=== PATIENT | male | born 1950 | race Caucasian/White ===

== ENCOUNTER → 2019-09-10 | Outpatient (CLI) | payer MEDICARE, OTHER ==
--- NOTE | 2019-09-10 19:47 | CONS ---
CONSULTATION REASON FOR CONSULTATION: Sleep apnea. A 69-year-old male patient diagnosed having obstructive sleep apnea back in 2013. At that time, the patient was found to have severe disease with an AHI of 41. He used to weigh 253 pounds. He was given CPAP therapy at a pressure of 15 cm of water. He was given a Resmed S9 series. He has not used his CPAP machine for almost a year. It went through multiple masks including nose mask, nose pillows and full face mask and he is seeking full-face mask, which does not irritate his nose knowing that he has developed significant amount of irritation at the level of his nose bridge. He has not used his machine for almost a year and he is symptomatically snoring. His sleep is fragmented and he is waking up tired and sleepy during the day. Note that there has been no significant weight gain over the past 5 years. He is know to have several comorbidities. No history of stroke. No history of coronary artery disease and myocardial infarction. No history of malignancy. For now he is symptomatic. His [place] score is at 7 and he is seeking further help regarding the pressure setting and the mask interface to make the treatment more successful. PAST MEDICAL HISTORY: Obstructive sleep apnea. Hyperlipidemia, diabetes mellitus, hypertension, and psoriasis. SURGICAL HISTORY: Includes shoulder surgery and knee surgery. DRUG ALLERGIES: Not known. OUTPATIENT MEDICATION LIST: Includes Crestor, metformin, Altace, Zyrtec, Otezla. SOCIAL HISTORY: The patient is a nonsmoker. No history of alcoholism. He is a social alcohol drinker. No history of substance abuse. FAMILY HISTORY: Negative for sleep apnea. Family history has been essentially positive for hypertension and hyperlipidemia. REVIEW OF SYSTEMS: Fourteen-point review of system was done. Positive findings are mentioned in history of present illness. For now, he is symptomatic and has excessive fatigue and sleepiness and snoring and quits breathing at night. No insomnia. No choking. He does not wake up gasping for air. He seems to be tired and sleepy during the day. Having problems with tiredness and falling sleep during the day. He is taking two caffeinated beverages on a daily basis. Weight is stable at 230. Does take a nap in the afternoon. He does not fall asleep while driving. No history of any motor vehicle accident because of feeling drowsy or sleepy. No nighttime chest pain, heartburn or shortness of breath. His weight has been stable furthermore. PHYSICAL EXAMINATION: His current vitals: BP is 153/68, pulse 64, respirations 16, temperature 98.0, saturation 97% on room air. Height is 5 feet 6 inches, weight is 223. Neck size 18 1/4 of an inch and BMI 35.4, general appearance: Calm and comfortable. Head is atraumatic, normocephalic. NECK: Supple. There is no JVD. No goiter or neck masses. Mallampati class 4. Lungs diminished, otherwise clear. HEART: Heart sounds are regular rate and rhythm. Normal S1, S2. No S3. No murmurs. ABDOMEN: Soft, nontender. No organomegaly. EXTREMITIES: No edema. No cyanosis or clubbing. NEUROLOGIC: He is awake and alert. There are no focal neurological deficits. PSYCHIATRIC: Negative for anxiety or depression. IMPRESSION: 1. Symptomatic obstructive sleep apnea. Severe, based on a previous sleep study that was done in 2013 and the patient has an AHI of 41. His weight has been stable. He was given Resmed S9 series CPAP unit at a pressure of 15 cm of water. 2. 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 3. Hyperlipidemia. 4. Diabetes mellitus. 5. Psoriasis. PLAN: I went ahead and reviewed the CPAP titration that was done back in 2013. I think we should be able to get by lower CPAP pressures. I lowered the patient's CPAP pressure down to 11 cm of water. I gave him 15 minutes REM time with a starting pressure of 6. I also changed his mask to a DreamWear under the nose medium-sized full-face mask. The mask fit was tried in the office, it was good. I am hoping that the combination of lowering the pressure in the mask which is under should improve his compliancy. I am asking the patient to come in for a short term compliancy in 3 weeks time to make sure treatment is successful prior to his departure to [place]. Rest of the medications will be kept unchanged. Encourage weight loss. We will continue to follow. I am hoping treatment will be successful. There is no need for repeating this study. The patient will keep on using his Resmed S9 CPAP unit. We will continue to follow. MMODL / IJN: [id number] /
== END | disposition home or self-care (01) ==
LOC: SLEEP 14:17
PROVIDERS: ATTEND Internal Medicine Critical Care Medicine
DX: G47.33 Obstructive sleep apnea (adult) (pediatric) (principal); G47.19 Other hypersomnia; E78.5 Hyperlipidemia, unspecified; I10 Essential (primary) hypertension; E11.9 Type 2 diabetes mellitus without complications; L40.9 Psoriasis, unspecified; Z99.89 Dependence on other enabling machines and devices; Z79.84 Long term (current) use of oral hypoglycemic drugs; Z79.899 Other long term (current) drug therapy
CPT/HCPCS: 99211

== ENCOUNTER 2019-09-27 06:29 | Day surgery (SDC) | payer MEDICARE, OTHER ==
[2019-09-25 10:41] VITALS: BMI 34.9
[~2019-09-27 06:29] MED LIST: LACTATED RINGERS 1,000 ML IV SCH
[2019-09-27 07:23] VITALS: TEMP 97.8
[2019-09-27 07:30] LABS: Glucose,Whole Blood 130 mg/dL (75-99)
[2019-09-27] MEDS ORDERED: LIDOCAINE 1% 20 ML VIAL (10MG/ML) FOR IV START INTRADERMA ONE (07:33)
[2019-09-27] MEDS ORDERED: fentaNYL (PF) 50 MCG/ML 2 ML AMP ONE (07:50)
[2019-09-27] MEDS ORDERED: PROPOFOL 10 MG/ML 20 ML VIAL IV ONE (07:50)
[2019-09-27] MEDS ORDERED: MIDAZOLAM 2 MG/2 ML VIAL ONE (07:50)
--- NOTE | 2019-09-27 08:08 | P.PCN ---
Date of Procedure: 09/27/19 Procedure(s) Performed: BRIEF HISTORY: Patient is a 61-year-old pleasant white male scheduled for an elective colonoscopy as a part of evaluation of prior history of colon polyps. Last colonoscopy was 5 years ago. PROCEDURE PERFORMED: Colonoscopy with snare polypectomy. PREOPERATIVE DIAGNOSIS: History of colon polyps. IV sedation per Anesthesia. PROCEDURE: After informed consent was obtained, the patient, was brought into the endoscopy unit. IV sedation was administered by Anesthesia under continuous monitoring. Digital rectal examination was normal. Initially the Olympus CF-160 flexible video colonoscope was then inserted in the rectum, gradually advanced into the cecum without any difficulty. Careful examination was performed as the scope was gradually being withdrawn. Ileocecal valve and the appendiceal orifice were visualized and appeared normal. Prep was excellent. Mucosa of the cecum, ascending colon appeared normal. In the transverse colon there was a 5 limited polyp removed by snare polypectomy. Rest of the, transverse colon, descending colon, sigmoid colon, and rectum appeared normal. Scattered sigmoidal reticulosis seen. Retroflexion was performed in the rectum and no lesions were seen. The patient tolerated the procedure well. IMPRESSION: 5 mm sessile transverse colon polyps is post polypectomy Scattered sigmoid diverticulosis RECOMMENDATIONS: Findings of this examination were discussed with the patient as well as his family. He was advised to follow with the biopsy results. He can have a repeat surveillance colonoscopy in 5 years because of the colon polyps..
[2019-09-27 08:32] VITALS: BP 118/70; PULSE 70; RESP 18
== END 2019-09-27 08:50 | disposition home or self-care (01) ==
LOC: ORWHC2ENDO 06:29
PROVIDERS: ATTEND Internal Medicine Gastroenterology
DX: D12.3 Benign neoplasm of transverse colon (principal); K57.30 Diverticulosis of large intestine without perforation or abscess without bleeding; Z86.010 Personal history of colon polyps; E11.9 Type 2 diabetes mellitus without complications; I10 Essential (primary) hypertension; E78.5 Hyperlipidemia, unspecified; G47.33 Obstructive sleep apnea (adult) (pediatric); L40.9 Psoriasis, unspecified; Z79.84 Long term (current) use of oral hypoglycemic drugs; Z79.899 Other long term (current) drug therapy; Z87.891 Personal history of nicotine dependence; Z97.2 Presence of dental prosthetic device (complete) (partial)
CPT/HCPCS: 88305; 45385; J2250; J3010; J2704

== ENCOUNTER → 2019-10-01 | Outpatient (CLI) | payer MEDICARE, OTHER ==
--- NOTE | 2019-10-01 19:48 | PN ---
PROGRESS NOTE Ted is a 69-year-old male patient coming in for a compliancy check regarding his obstructive sleep apnea. The patient is doing extremely well. He has no specific complaints. I saw this patient in my office approximately 3 weeks ago. I made an adjustment on his CPAP unit and I lowered the pressure to 11 cm of water. For now he is averaging about 4.9 hours of CPAP use per night and he is using a DreamWear under- the-nose full-face mask. Doing well. He has no specific complaints. [place] score is 8. He will be going to [place] and he is very interested in updating his CPAP machine after he comes back from [place]. Note that his disease was severe with an AHI of 41 and he is utilizing an older-generation ResMed S9 series. PHYSICAL EXAMINATION: VITAL SIGNS: BP is 132/71, pulse 91, respirations 18, temperature 97.5, saturation 95% on room air. [place] score is 8. GENERAL APPEARANCE: Calm, comfortable. HEAD: Atraumatic, normocephalic. NECK: Supple. There is no JVD. No goiter or neck masses. LUNGS: Clear to auscultation. HEART: Heart sounds are regular rate and rhythm. Normal S1, S2. No S3, S4. No murmurs. ABDOMEN: Soft, nontender. No organomegaly. EXTREMITIES: No edema. No cyanosis or clubbing. NEUROLOGIC: Alert and oriented x3. No focal neurological deficits. IMPRESSION: 1. Symptomatic obstructive sleep apnea with an apnea/hypopnea index of 41, currently on CPAP therapy at a pressure of 11 cm of water. 2. Hypersomnia, improved. 3. Hyperlipidemia. 4. Diabetes mellitus. 5. Psoriasis. PLAN: 1. Keep the CPAP pressure at 11. 2. Continue using the DreamWear full-face mask [id number], medium size. 3. Compliance is improved. The patient will be going to [place] and will see me back next year. I may be considering a machine update on him if he continues to show adequate compliance on his current unit. Will continue to follow. MMODL / IJN: [id number] /
== END | disposition home or self-care (01) ==
LOC: SLEEP 13:05
PROVIDERS: ATTEND Internal Medicine Critical Care Medicine
DX: G47.33 Obstructive sleep apnea (adult) (pediatric) (principal); E78.5 Hyperlipidemia, unspecified; E11.9 Type 2 diabetes mellitus without complications; L40.9 Psoriasis, unspecified

== ENCOUNTER → 2020-10-14 | Outpatient (CLI) | payer MEDICARE, OTHER | END | disposition home or self-care (01) | LOC: LABWHC1 12:37 | PROVIDERS: ATTEND Family Medicine | DX: R50.9 Fever, unspecified (principal) | CPT/HCPCS: 87502; U0003; C9803 ==

== ENCOUNTER 2020-10-19 09:07 | Inpatient (IN) | payer MEDICARE, OTHER ==
[2020-10-19] MEDS ORDERED: ACETAMINOPHEN TAB 325 MG TAB PO PRN (09:48)
[2020-10-19 10:20] LABS: Basophils # (A) 0.1 k/uL (0-0.2); Basophils % (A) 1 %; Eosinophils % (A) 0 %; HCT 51.6 % (39.0-53.0); HGB 18.7 gm/dL (13.0-17.5); Lymphocytes # (A) 0.7 k/uL (1.0-4.8); Lymphocytes % (A) 7 %; MCH 34.4 pg (25.0-35.0); MCHC 36.3 g/dL (31.0-37.0); MCV 94.7 fL (80.0-100.0); Monocytes # (A) 0.4 k/uL (0-1.0); Monocytes % (A) 4 %; Neutrophils % (A) 86 %; Platelet Count 263 k/uL (150-450); RBC 5.45 m/uL (4.30-5.90); RDW 12.3 % (11.5-15.5); WBC 10.5 k/uL (3.8-10.6)
[2020-10-19 10:34] LABS: INR 1.1 (<1.2)
[2020-10-19 10:35] LABS: Partial Thromboplastin Time 30.6 sec (22.0-30.0); Prothrombin Time 11.5 sec (9.0-12.0)
[2020-10-19 10:45] LABS: D-Dimer 2.7 mg/L FEU (<0.60)
[2020-10-19 11:40] LABS: ALT 216 U/L (4-49); AST 202 U/L (17-59); African American GFR (CKD) >90 (>60 ml/min/1.73 sqM); Albumin 3.8 g/dL (3.5-5.0); Alkaline Phosphatase 83 U/L (38-126); Anion Gap 12 mmol/L; Blood Urea Nitrogen 22 mg/dL (9-20); Calcium 9.1 mg/dL (8.4-10.2); Carbon Dioxide 23 mmol/L (22-30); Chloride 100 mmol/L (98-107); Glucose 135 mg/dL (74-99); LDH 1815 U/L (313-618); Magnesium 1.9 mg/dL (1.6-2.3); Non-African American GFR(CKD) >90 (>60 ml/min/1.73 sqM); Potassium 3.9 mmol/L (3.5-5.1); Sodium 135 mmol/L (137-145); Total Bilirubin 1.2 mg/dL (0.2-1.3); Total Protein 7.4 g/dL (6.3-8.2)
--- NOTE | 2020-10-19 12:06 | CT ---
EXAMINATION TYPE: CT chest angio for PE DATE OF EXAM: 10/19/2020 COMPARISON: None HISTORY: Elevated d-dimer, trouble breathing CT DLP: 452 mGycm CONTRAST: CT chest with contrast and 3D reconstruction with MIP imaging is performed with IV Contrast, patient injected with 100 mL of Isovue 370. Contrast-enhanced CT of the chest was performed through the course of the pulmonary arteries with qi g and mediastinal window settings submitted. 3D reconstruction with MIP imaging was also performed. PULMONARY ARTERIES: The pulmonary arteries and their major tributaries are patent. I do not see justin dence for sizable filling defect to suggest pulmonary embolic process. LUNGS: Diffuse bilateral airspace and groundglass infiltrates compatible with Covid 19 pneumonia. No evidence for atelectasis. No pulmonary nodule or mass is detected. No pleural effusion. MEDIASTINUM: Thoracic aorta is of normal caliber,however, evaluation is limited given timing of the contrast bolus. If there is concern for thoracic aortic pathology consider DIXIE. Correlate clinicall y . The heart is not enlarged. No evidence for mediastinal mass. No mediastinal lymph nodes greater than 1cm. HILAR STRUCTURES: No evidence for mass. No hilar lymph nodes greater than 1 cm. UPPER ABDOMEN: No significant abnormality is seen. IMPRESSION: 1. No evidence for Pulmonary embolism at this time. 2. Covid 19 pneumonia
--- NOTE | 2020-10-19 12:06 | XR ---
EXAMINATION TYPE: XR chest 1V portable DATE OF EXAM: 10/19/2020 COMPARISON: None INDICATION: Suspected Covid 19 pneumonia TECHNIQUE: Single frontal view of the chest is obtained. FINDINGS: The heart size is probably prominent. The pulmonary vasculature is normal. Diffuse perihilar and lower lobe infiltrates are present slightly greater on the left. Findings are n onspecific but can be related to atypical pneumonia in the proper clinical setting. IMPRESSION: 1. Perihilar and left lower lobe infiltrates. Correlate for atypical pneumonia.
[2020-10-19] MEDS ORDERED: NALOXONE 0.4 MG/ML 1 ML VIAL IV PRN (12:09)
--- NOTE | 2020-10-19 12:11 | ED ---
SOB HPI - General Chief Complaint: Shortness of Breath Stated Complaint: +Covid/Fever/Cough/SOB Time Seen by Provider: 10/19/20 09:30 Source: patient Mode of arrival: wheelchair Limitations: no limitations - History of Present Illness Initial Comments: 70-year-old male presenting today for chief complaint of shortness of breath cough congestion fevers. Patient states he has had overall 2 weeks of symptoms including fever. Patient states he has night sweats. Patient states that he'll test on for Covid which returned positive today when shortness of breath was worsening present to the ER for evaluation upon arrival patient was hypoxic. Patient denied any. Deep inspiration or hemoptysis he denies any leg swelling nausea vomiting abdominal pain. Patient appears in no acute respiratory distress at this time. - Related Data Home Medications Medication Instructions Recorded Confirmed Apremilast [Otezla] 30 mg PO BID 09/25/19 10/19/20 Cetirizine HCl [Zyrtec] 10 mg PO DAILY 09/25/19 10/19/20 Milk Thistle 1,000 mg PO DAILY 09/25/19 10/19/20 Rosuvastatin Calcium [Crestor] 5 mg PO HS 09/25/19 10/19/20 metFORMIN HCL [Glucophage] 500 mg PO BID 09/25/19 10/19/20 Ibuprofen [Motrin] 800 mg PO Q8H PRN 10/19/20 10/19/20 Metoprolol Tartrate [Lopressor] 25 mg PO BID 10/19/20 10/19/20 Allergies Allergy/AdvReac Type Severity Reaction Status Date / Time No Known Allergies Allergy Verified 10/19/20 10:30 Review of Systems ROS Statement: Those systems with pertinent positive or pertinent negative responses have been documented in the HPI. ROS Other: All systems not noted in ROS Statement are negative. Past Medical History Past Medical History: Diabetes Mellitus, Hyperlipidemia, Hypertension, Skin Disorder Additional Past Medical History / Comment(s): Psoriasis. Uses CPAP, sleep apnea History of Any Multi-Drug Resistant Organisms: None Reported Past Surgical History: Orthopedic Surgery Additional Past Surgical History / Comment(s): Colonoscopy. Arthroscopy knee, lt shoulder. Cataracts. Past Anesthesia/Blood Transfusion Reactions: No Reported Reaction Past Psychological History: No Psychological Hx Reported Smoking Status: Never smoker Past Alcohol Use History: Daily, Heavy Past Drug Use History: None Reported - Past Family History Mother Family Medical History: No Reported History General Exam - General Exam Comments Initial Comments: General: The patient is awake and alert, in no distress Eye: +3 mm pupils are equal, round and reactive to light, extra-ocular movements are intact. No nystagmus. There is normal conjunctiva bilaterally. No signs of icterus. Ears, nose, mouth and throat: There are moist mucous membranes and no oral lesions. Neck: The neck is supple, there is no tenderness or JVD. Cardiovascular: There is a regular rate and rhythm. No murmur, rub or gallop is appreciated. Respiratory: Respirations are non-labored, breath sounds are equal. No wheezes, stridor.Rales and rhonchi noted throughout. Gastrointestinal: Soft, non-distended, non-tender abdomen without masses or organomegaly noted. There is no rebound or guarding present. Musculoskeletal: Normal ROM, no tenderness. Strength 5/5. Sensation intact. Radial pulses equal bilaterally 2+. Neurological: A&O x 3. CN II-XII intact grossly, There are no obvious motor or sensory deficits. Coordination appears grossly intact. Speech is normal. Skin: Skin is warm and dry and no rashes or lesions are noted. No LE edema, or calf pain. Psychiatric: Cooperative, appropriate mood & affect, normal judgment. Limitations: no limitations Course Vital Signs 10/19/20 10/19/20 10/19/20 09:13 09:34 09:40 Temperature 99.0 F Pulse Rate 81 68 Respiratory 20 22 Rate Blood Pressure 125/69 O2 Sat by Pulse 86 L 93 L 94 L Oximetry 10/19/20 10/19/20 10/19/20 09:50 10:00 10:10 Temperature Pulse Rate 70 66 64 Respiratory 22 21 22 Rate Blood Pressure 131/65 121/75 O2 Sat by Pulse 94 L 93 L 92 L Oximetry 10/19/20 10/19/20 10/19/20 10:20 10:30 10:40 Temperature 99 F Pulse Rate 65 64 78 Respiratory 22 31 H 52 H Rate Blood Pressure 121/75 121/75 119/70 O2 Sat by Pulse 93 L 93 L Oximetry 10/19/20 10/19/20 10/19/20 10:50 11:00 11:10 Temperature Pulse Rate 67 Respiratory 25 H 29 H Rate Blood Pressure 119/70 119/70 123/102 O2 Sat by Pulse 91 L 93 L Oximetry 10/19/20 10/19/20 10/19/20 11:20 11:30 11:40 Temperature Pulse Rate 61 58 L 56 L Respiratory 31 H 30 H 28 H Rate Blood Pressure 123/102 123/102 130/69 O2 Sat by Pulse 93 L 91 L 92 L Oximetry 10/19/20 11:50 Temperature Pulse Rate Respiratory Rate Blood Pressure 130/69 O2 Sat by Pulse Oximetry Medical Decision Making - Medical Decision Making Labs consistent with [place]. Patient known, with positive. Patient EKG no acute findings. This x-ray and CTA consistent with pneumonia.Patient oxygen stablized wtih supplementation via nasal cannula. patient is agreeable to admission and care plan. Dr. Waddell agreeablet o care plan. Ventricular rate 68 bpm, IN interval 172 ms, QRS ration 112 ms, QT/QTC 424/450 ms. Normal sinus rest elevation or depression is appreciated - Lab Data Result diagrams: 10/19/20 09:32 10/19/20 09:32 Lab Results 10/19/20 10/19/20 10/19/20 Range/Units 09:32 09:32 09:32 WBC 10.5 (3.8-10.6) k/uL RBC 5.45 (4.30-5.90) m/uL Hgb 18.7 H (13.0-17.5) gm/dL Hct 51.6 (39.0-53.0) % MCV 94.7 (80.0-100.0) fL MCH 34.4 (25.0-35.0) pg MCHC 36.3 (31.0-37.0) g/dL RDW 12.3 (11.5-15.5) % Plt Count 263 (150-450) k/uL MPV 7.0 Neutrophils % 86 % Lymphocytes % 7 % Monocytes % 4 % Eosinophils % 0 % Basophils % 1 % Neutrophils # 9.0 H (1.3-7.7) k/uL Lymphocytes # 0.7 L (1.0-4.8) k/uL Monocytes # 0.4 (0-1.0) k/uL Eosinophils # 0.0 (0-0.7) k/uL Basophils # 0.1 (0-0.2) k/uL PT 11.5 (9.0-12.0) sec INR 1.1 (<1.2) APTT 30.6 H (22.0-30.0) sec D-Dimer 2.70 H (<0.60) mg/L FEU Sodium 135 L (137-145) mmol/L Potassium 3.9 (3.5-5.1) mmol/L Chloride 100 (98-107) mmol/L Carbon Dioxide 23 (22-30) mmol/L Anion Gap 12 mmol/L BUN 22 H (9-20) mg/dL Creatinine 0.63 L (0.66-1.25) mg/dL Est GFR (CKD-EPI)AfAm >90 (>60 ml/min/1.73 sqM) Est GFR (CKD-EPI)NonAf >90 (>60 ml/min/1.73 sqM) Glucose 135 H (74-99) mg/dL Plasma Lactic Acid John (0.7-2.0) mmol/L Calcium 9.1 (8.4-10.2) mg/dL Magnesium 1.9 (1.6-2.3) mg/dL Total Bilirubin 1.2 (0.2-1.3) mg/dL AST 202 H (17-59) U/L ALT 216 H (4-49) U/L Alkaline Phosphatase 83 (38-126) U/L Lactate Dehydrogenase 1815 H (313-618) U/L C-Reactive Protein 146.2 H (<10.0) mg/L Total Protein 7.4 (6.3-8.2) g/dL Albumin 3.8 (3.5-5.0) g/dL 10/19/20 Range/Units 09:32 WBC (3.8-10.6) k/uL RBC (4.30-5.90) m/uL Hgb (13.0-17.5) gm/dL Hct (39.0-53.0) % MCV (80.0-100.0) fL MCH (25.0-35.0) pg MCHC (31.0-37.0) g/dL RDW (11.5-15.5) % Plt Count (150-450) k/uL MPV Neutrophils % % Lymphocytes % % Monocytes % % Eosinophils % % Basophils % % Neutrophils # (1.3-7.7) k/uL Lymphocytes # (1.0-4.8) k/uL Monocytes # (0-1.0) k/uL Eosinophils # (0-0.7) k/uL Basophils # (0-0.2) k/uL PT (9.0-12.0) sec INR (<1.2) APTT (22.0-30.0) sec D-Dimer (<0.60) mg/L FEU Sodium (137-145) mmol/L Potassium (3.5-5.1) mmol/L Chloride (98-107) mmol/L Carbon Dioxide (22-30) mmol/L Anion Gap mmol/L BUN (9-20) mg/dL Creatinine (0.66-1.25) mg/dL Est GFR (CKD-EPI)AfAm (>60 ml/min/1.73 sqM) Est GFR (CKD-EPI)NonAf (>60 ml/min/1.73 sqM) Glucose (74-99) mg/dL Plasma Lactic Acid John 1.8 (0.7-2.0) mmol/L Calcium (8.4-10.2) mg/dL Magnesium (1.6-2.3) mg/dL Total Bilirubin (0.2-1.3) mg/dL AST (17-59) U/L ALT (4-49) U/L Alkaline Phosphatase (38-126) U/L Lactate Dehydrogenase (313-618) U/L C-Reactive Protein (<10.0) mg/L Total Protein (6.3-8.2) g/dL Albumin (3.5-5.0) g/dL Disposition Clinical Impression: Pneumonia due to COVID-19 virus, Hypoxia Disposition: ADMITTED IP TO THIS [facility] Condition: Serious Is patient prescribed a controlled substance at d/c from ED?: No Referrals: Burton Amado DO [Primary Care Provider] - 1-2 days Time of Disposition: 12:11 Decision to Admit Reason: Admit from EC Decision Date: 10/19/20 Decision Time: 12:11
[2020-10-19 12:12] LABS: C Reactive Protein 146.2 mg/L (<10.0)
[2020-10-19] MEDS ORDERED: DEXAMETHASONE SOD PHOSPHATE 4 MG/ML 1 ML VIAL IV STA (12:17)
[2020-10-19] MEDS ORDERED: AZITHROMYCIN 500 MG in SODIUM CHLORIDE 0.9% 250 ML IVPB STA (12:18)
[2020-10-19] MEDS: ZINC SULFATE 220 MG CAP PO SCH (17:28)
[2020-10-19] MEDS: metFORMIN 500 MG TAB PO SCH (17:28)
[2020-10-19] MEDS: methylPREDNISolone SOD SUCCI 40 MG/ML 1 ML VIAL IV SCH ×2 (17:29→23:03)
[2020-10-19] MEDS: METOPROLOL TARTRATE 25 MG TAB PO SCH (20:06)
[2020-10-19] MEDS: FAMOTIDINE 20 MG TAB PO SCH (20:06)
[2020-10-19] MEDS: ENOXAPARIN 100 MG/ML SYRINGE SQ SCH (20:06)
[2020-10-19] MEDS: ATORVASTATIN 10 MG TAB PO SCH (20:06)
[2020-10-19] MEDS: Apremilast [Otezla] 30 MG Tablet PO SCH (20:11)
[2020-10-19 20:39] LABS: Glucose,Whole Blood 172 mg/dL (75-99)
--- NOTE | 2020-10-19 21:15 | P.HPIM ---
History of Present Illness H&P Date: 10/19/20 Chief Complaint: short of breath History of presenting complaint: This is a very pleasant 70-year-old patient Dr. Amado. Chronic stable medical conditions include diabetes, hypertension, hyperlipidemia, psoriatic assess, obstructive sleep apnea uses CPAP. For 2 weeks patient's had progressive respiratory symptoms. Shortness of breath cough. High fevers. No diarrhea. Decreased appetite no loss of smell or taste. 5 days ago patient got his cover testing done. Results given today and a symptoms are getting worse he came to the ER. Review of systems: GEN.: Fever tired decreased appetite EYES: None HEENT: None NECK: None RESPIRATORY: As above CARDIOVASCULAR: None GASTROINTESTINAL: None GENITOURINARY: None MUSCULOSKELETAL: Some aches and pains LYMPHATICS: None HEMATOLOGICAL: None PSYCHIATRY: None NEUROLOGICAL: None Past medical history to include: Diabetes mellitus type 2, hypertension, hyperlipidemia, psoriatic assess, obstructive sleep apnea with CPAP Social history: . 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 Does not smoke. Drinks 6-8 beers a day. Family history: Reviewed, noncontributory to presentation Physical examination: VITAL SIGNS: 99, 81, 20, 125/69, 86% room air GENERAL: BMI 35, laying in bed, slightly short of breath. EYES: Pupils equal. Conjunctiva normal. HEENT: External appearance of nose and ears normal, oral cavity grossly normal. NECK: JVD not raised; masses not palpable. HEART: First and second heart sounds are normal; no edema. LUNGS: Respiratory rate increased, decreased breath sounds on extremity crackles mild wheezing. ABDOMEN: Soft, nontender, liver spleen not palpable, no masses palpable. PSYCH: Alert and oriented x3; mood and affect normal. NEUROLOGICAL: Cranial nerves grossly intact; no facial asymmetry, power and sensation grossly intact. LYMPHATICS: No lymph nodes palpable in the axilla and neck INVESTIGATIONS, reviewed in the clinical context: White count 10.5 hemoglobin 18.7 platelets 263 increased neutrophils lymphocyte 0.7 D-dimer 2.7 potassium 3.9 BUN 22 creatinine 0.63 LDH 1815, CRP 146.2 AST 202 ALT 216 EKG tracing personally reviewed by me-normal sinus rhythm Chest x-ray film personally reviewed by me-bilateral scattered infiltrates peripheral Computed tomography scan of the chest-diffuse bilateral airspace and groundglass infiltrates Assessment: -This is a patient has 2 weeks of progressive respiratory symptoms. Tested positive last for COVID 19. X-ray confirms bilateral infiltrates. Now (. 4 bilateral COVID 19 pneumonia. -Acute hypoxic respiratory failure from above -Diabetes mellitus type 2 on oral hypoglycemic -Hyperlipidemia -Sorry as his -Obstructive sleep apnea uses CPAP -Alcohol use disorder uses anywhere from 6-8 beers per day. Plan: Patient is put on COVID 19 precautions. Oxygen supplementation. Started on July. Does of Lovenox and IV Solu-Medrol. Zinc vitamin D and Pepcid also being added. We'll follow CRP d-dimer. Patient has already had 2 weeks of symptoms. Remdesivir and convalesced plasma likely to be not effective. Pulmon jourdan consult. Care was discussed with the patient. DT prophylaxis. Past Medical History Past Medical History: Diabetes Mellitus, Hyperlipidemia, Hypertension, Skin Disorder Additional Past Medical History / Comment(s): Psoriasis. Uses CPAP, sleep apnea History of Any Multi-Drug Resistant Organisms: None Reported Past Surgical History: Orthopedic Surgery Additional Past Surgical History / Comment(s): Colonoscopy. Arthroscopy knee, lt shoulder. Cataracts. Past Anesthesia/Blood Transfusion Reactions: No Reported Reaction Past Psychological History: No Psychological Hx Reported Smoking Status: Former smoker Past Alcohol Use History: Daily, Heavy Additional Past Alcohol Use History / Comment(s): smoked 10 years, 1 ppd, quit in his 30's. 5 beers daily avg. Past Drug Use History: None Reported - Past Family History Mother Family Medical History: No Reported History Medications and Allergies Home Medications Medication Instructions Recorded Confirmed Type Apremilast [Otezla] 30 mg PO BID 09/25/19 10/19/20 History Cetirizine HCl [Zyrtec] 10 mg PO DAILY 09/25/19 10/19/20 History Milk Thistle 1,000 mg PO DAILY 09/25/19 10/19/20 History Rosuvastatin Calcium [Crestor] 5 mg PO HS 09/25/19 10/19/20 History metFORMIN HCL [Glucophage] 500 mg PO BID 09/25/19 10/19/20 History Ibuprofen [Motrin] 800 mg PO Q8H PRN 10/19/20 10/19/20 History Metoprolol Tartrate [Lopressor] 25 mg PO BID 10/19/20 10/19/20 History Allergies Allergy/AdvReac Type Severity Reaction Status Date / Time No Known Allergies Allergy Verified 10/19/20 10:30 Physical Exam Vitals: Vital Signs Temp Pulse Pulse Resp BP BP Pulse Ox 10/19/20 17:45 98.9 F 60 18 133/74 93 L 10/19/20 16:31 99 F 71 18 128/70 94 L 10/19/20 16:00 18 10/19/20 15:55 71 18 128/70 94 L 10/19/20 15:30 71 18 128/70 98 10/19/20 15:00 66 18 133/76 89 L 10/19/20 14:30 18 131/71 92 L 10/19/20 14:00 57 L 18 123/66 92 L 10/19/20 13:30 57 L 18 116/66 93 L 10/19/20 13:00 58 L 16 114/70 90 L 10/19/20 12:30 63 27 H 131/74 91 L 10/19/20 12:00 69 21 130/69 10/19/20 11:50 130/69 10/19/20 11:40 56 L 28 H 130/69 92 L 10/19/20 11:30 58 L 30 H 123/102 91 L 10/19/20 11:20 61 31 H 123/102 93 L 10/19/20 11:10 67 29 H 123/102 93 L 10/19/20 11:00 119/70 10/19/20 10:50 25 H 119/70 91 L 10/19/20 10:40 78 52 H 119/70 10/19/20 10:30 64 31 H 121/75 93 L 10/19/20 10:20 99 F 65 22 121/75 93 L 10/19/20 10:10 64 22 121/75 92 L 10/19/20 10:00 66 21 131/65 93 L 10/19/20 09:50 70 22 94 L 10/19/20 09:40 68 22 94 L 10/19/20 09:34 93 L 10/19/20 09:13 99.0 F 81 20 125/69 86 L Intake and Output 10/19/20 10/19/20 10/19/20 06:59 14:59 22:59 Other: Voiding Method Toilet Weight 104.326 kg Results CBC & Chem 7: 10/19/20 09:32 10/19/20 09:32 Labs: Abnormal Lab Results - Last 24 Hours (Table) 10/19/20 10/19/20 10/19/20 Range/Units 09:32 09:32 09:32 Hgb 18.7 H (13.0-17.5) gm/dL Neutrophils # 9.0 H (1.3-7.7) k/uL Lymphocytes # 0.7 L (1.0-4.8) k/uL APTT 30.6 H (22.0-30.0) sec D-Dimer 2.70 H (<0.60) mg/L FEU Sodium 135 L (137-145) mmol/L BUN 22 H (9-20) mg/dL Creatinine 0.63 L (0.66-1.25) mg/dL Glucose 135 H (74-99) mg/dL POC Glucose (mg/dL) (75-99) mg/dL AST 202 H (17-59) U/L ALT 216 H (4-49) U/L Lactate Dehydrogenase 1815 H (313-618) U/L C-Reactive Protein 146.2 H (<10.0) mg/L 10/19/20 Range/Units 20:38 Hgb (13.0-17.5) gm/dL Neutrophils # (1.3-7.7) k/uL Lymphocytes # (1.0-4.8) k/uL APTT (22.0-30.0) sec D-Dimer (<0.60) mg/L FEU Sodium (137-145) mmol/L BUN (9-20) mg/dL Creatinine (0.66-1.25) mg/dL Glucose (74-99) mg/dL POC Glucose (mg/dL) 172 H (75-99) mg/dL AST (17-59) U/L ALT (4-49) U/L Lactate Dehydrogenase (313-618) U/L C-Reactive Protein (<10.0) mg/L Thrombosis Risk Factor Assmnt - Choose All That Apply Each Factor Represents 1 point: Obesity (BMI >25) Other Risk Factors: Yes Each Risk Factor Represents 2 Points: Age 61-74 years Thrombosis Risk Factor Assessment Total Risk Factor Score: 3 Thrombosis Risk Factor Assessment Level: Moderate Risk
[2020-10-19] MEDS ORDERED: MAG HYDROX/AL HYDROX/SIMETH 30 ML CUP PO PRN (21:16)
[2020-10-19] MEDS ORDERED: CALCIUM CARBONATE 500 MG CHEWABLE PO PRN (21:16)
[2020-10-19] MEDS ORDERED: MELATONIN 3 MG TABLET PO PRN (21:16)
[2020-10-19] MEDS ORDERED: LACTULOSE 20 GM/30 ML CUP PO PRN (21:16)
[2020-10-19] MEDS ORDERED: ONDANSETRON 4 MG/2 ML VIAL IVP PRN (21:16)
[2020-10-19 21:29] LABS: Ferritin 3595.2 ng/mL (22.0-322.0)
[2020-10-19] MEDS: CHOLECALCIFEROL 400 UNIT TAB PO SCH (21:33)
[2020-10-19] MEDS: diazePAM 2 MG TAB PO SCH (21:33)
[2020-10-20 06:46] LABS: Glucose,Whole Blood 171 mg/dL (75-99)
[2020-10-20] MEDS: ENOXAPARIN 100 MG/ML SYRINGE SQ SCH ×2 (08:33→20:33)
[2020-10-20] MEDS: FAMOTIDINE 20 MG TAB PO SCH ×2 (08:33→20:33)
[2020-10-20] MEDS: METOPROLOL TARTRATE 25 MG TAB PO SCH ×2 (08:33→20:33)
[2020-10-20] MEDS: diazePAM 2 MG TAB PO SCH ×2 (08:33→20:33)
[2020-10-20] MEDS: metFORMIN 500 MG TAB PO SCH ×2 (08:34→17:30)
[2020-10-20] MEDS: ZINC SULFATE 220 MG CAP PO SCH (08:34)
[2020-10-20] MEDS: methylPREDNISolone SOD SUCCI 40 MG/ML 1 ML VIAL IV SCH ×2 (08:34→17:30)
[2020-10-20] MEDS: CHOLECALCIFEROL 400 UNIT TAB PO SCH (08:34)
[2020-10-20] MEDS: Apremilast [Otezla] 30 MG Tablet PO SCH ×2 (10:20→22:11)
[2020-10-20 11:52] LABS: Glucose,Whole Blood 186 mg/dL (75-99)
--- NOTE | 2020-10-20 20:07 | P.CNPUL ---
History of Present Illness Consult date: 10/20/20 Requesting physician: James Padilla Reason for consult: pneumonia Chief complaint: Shortness of breath cough and fever History of present illness: This is a 70-year-old white male with history of diabetes, hypertension, dyslipidemia, ALLERGIC rhinitis, patient presented to the ER on 10/19/20, mostly with over 2 weeks history of fever, cough, congestion, and shortness of breath. Patient had his Covid testing last , this was done on outpatient basis, and the test came back positive on the day that he decided to come to the ER with worsening shortness of breath symptoms. Upon arrival the patient was noted to be hypoxic, and his chest x-ray as well as CT of the chest showed diffuse bilateral airspace and groundglass infiltrates compatible with covid 19 pneumonitis. Patient was admitted, and we were asked to see him on consultation. Patient was placed on Lovenox, Decadron, Pepcid, considering that the patient had his symptoms for over 2 weeks, no remdesivir was recommended. Review of Systems GEN.: Fever tired decreased appetite EYES: None HEENT: None NECK: None RESPIRATORY: As above CARDIOVASCULAR: None GASTROINTESTINAL: None GENITOURINARY: None MUSCULOSKELETAL: Some aches and pains LYMPHATICS: None HEMATOLOGICAL: None PSYCHIATRY: None NEUROLOGICAL: None Past Medical History Past Medical History: Diabetes Mellitus, Hyperlipidemia, Hypertension, Skin Disorder Additional Past Medical History / Comment(s): Psoriasis. Uses CPAP, sleep apnea History of Any Multi-Drug Resistant Organisms: None Reported Past Surgical History: Orthopedic Surgery Additional Past Surgical History / Comment(s): Colonoscopy. Arthroscopy knee, lt shoulder. Cataracts. Past Anesthesia/Blood Transfusion Reactions: No Reported Reaction Past Psychological History: No Psychological Hx Reported Smoking Status: Former smoker Past Alcohol Use History: Daily, Heavy Additional Past Alcohol Use History / Comment(s): smoked 10 years, 1 ppd, quit in his 30's. 5 beers daily avg. Past Drug Use History: None Reported - Past Family History Mother Family Medical History: No Reported History Medications and Allergies Home Medications Medication Instructions Recorded Confirmed Type Apremilast [Otezla] 30 mg PO BID 09/25/19 10/19/20 History Cetirizine HCl [Zyrtec] 10 mg PO DAILY 09/25/19 10/19/20 History Milk Thistle 1,000 mg PO DAILY 09/25/19 10/19/20 History Rosuvastatin Calcium [Crestor] 5 mg PO HS 09/25/19 10/19/20 History metFORMIN HCL [Glucophage] 500 mg PO BID 09/25/19 10/19/20 History Ibuprofen [Motrin] 800 mg PO Q8H PRN 10/19/20 10/19/20 History Metoprolol Tartrate [Lopressor] 25 mg PO BID 10/19/20 10/19/20 History Allergies Allergy/AdvReac Type Severity Reaction Status Date / Time No Known Allergies Allergy Verified 10/19/20 10:30 Physical Exam Vitals: Vital Signs Temp Pulse Resp BP Pulse Ox 10/20/20 17:49 97.5 F L 59 L 18 122/72 91 L 10/20/20 14:00 98.3 F 57 L 16 115/64 92 L 10/20/20 09:46 98.5 F 56 L 18 139/73 91 L 10/20/20 08:00 56 L 18 10/20/20 05:35 97.6 F 58 L 16 133/74 94 L 10/20/20 02:10 98.0 F 60 16 143/79 93 L 10/19/20 22:04 98.6 F 62 16 125/72 92 L Intake and Output 10/20/20 10/20/20 10/20/20 06:59 14:59 22:59 Intake Total 500 Balance 500 Intake: Oral 500 Other: Voiding Method Toilet Toilet # Voids 1 GENERAL: Revealed a 70-year-old white male in no distress. EYES: PERRLA, EOMI, no icterus. HEENT: Moist mucous membranes, clear throat, nasal mucosa is normal. NECK: No neck masses, no JVD, no stridor. HEART: Normal S1 and S2, no S3 gallop. LUNGS: Symmetrical chest expansion, crackles at the bases, rhonchi on forced expiratory maneuver. ABDOMEN: Soft nontender no megaly no rebound.. PSYCH: Normal mood affect and normal mental status examination. NEUROLOGICAL: Alert and oriented 3 focal deficits. LYMPHATICS: No lymphadenopath'sy Skin: No rashes. No cyanosis. No jaundice Results - Laboratory Findings CBC and BMP: 10/19/20 09:32 10/19/20 09:32 PT/INR, D-dimer PT 11.5 sec (9.0-12.0) 10/19/20 09:32 INR 1.1 (<1.2) 10/19/20 09:32 D-Dimer 2.70 mg/L FEU (<0.60) H 10/19/20 09:32 Abnormal lab findings: Abnormal Labs 10/19/20 10/19/20 10/19/20 09:32 09:32 09:32 Hgb 18.7 H Neutrophils # 9.0 H Lymphocytes # 0.7 L APTT 30.6 H D-Dimer 2.70 H Sodium 135 L BUN 22 H Creatinine 0.63 L Glucose 135 H POC Glucose (mg/dL) Ferritin 3595.2 H AST 202 H ALT 216 H Lactate Dehydrogenase 1815 H C-Reactive Protein 146.2 H Procalcitonin 10/19/20 10/19/20 10/20/20 09:32 20:38 06:44 Hgb Neutrophils # Lymphocytes # APTT D-Dimer Sodium BUN Creatinine Glucose POC Glucose (mg/dL) 172 H 171 H Ferritin AST ALT Lactate Dehydrogenase C-Reactive Protein Procalcitonin 0.31 H 10/20/20 11:50 Hgb Neutrophils # Lymphocytes # APTT D-Dimer Sodium BUN Creatinine Glucose POC Glucose (mg/dL) 186 H Ferritin AST ALT Lactate Dehydrogenase C-Reactive Protein Procalcitonin - Diagnostic Findings CT scan - chest: image reviewed (As noted in HPI.) Assessment and Plan Assessment: Impression: Acute hypoxic respiratory failure Acute covid 19 pneumonitis Type 2 diabetes. History of obstructive sleep apnea, uses CPAP. History of alcohol abuse. Recommendation: Continue present supportive care measures. Continue oxygen and titrate accordingly. Continue methylprednisolone. Continue Lovenox. Continue vitamin D and vitamin C as well as zinc. We'll continue to follow closely. Time with Patient: Greater than 30
--- NOTE | 2020-10-20 20:28 | P.PN ---
Progress Note - Text Progress Note Date: 10/20/20 Chief Complaint: short of breath History of presenting complaint: This is a very pleasant 70-year-old patient Dr. Amado. Chronic stable medical conditions include diabetes, hypertension, hyperlipidemia, psoriatic assess, obstructive sleep apnea uses CPAP. For 2 weeks patient's had progressive respiratory symptoms. Shortness of breath cough. High fevers. No diarrhea. Decreased appetite no loss of smell or taste. 5 days ago patient got his cover testing done. Results given today and a symptoms are getting worse he came to the ER. Admitted with bilateral COVID 19 pneumonia, acute hypoxic respiratory failure. Patient is on IV Solu-Medrol, subcu Lovenox. Was put on Valium for DT prophylaxis. Today-slight improvement in breathing. Eating better. No fever. Some cough. Up to the bathroom Review of systems: Was done for constitutional, cardiovascular, GI, pulmonary. relevant finding as above Active Medications Acetaminophen (Acetaminophen Tab 325 Mg Tab) 650 mg PO Q4HR PRN PRN Reason: Fever>101 Last Admin: 10/19/20 10:01 Dose: 650 mg Documented by: Al Hydroxide/Mg Hydroxide (Mag Hydrox/Al Hydrox/Simeth 30 Ml Cup) 15 ml PO Q6HR PRN PRN Reason: Indigestion Atorvastatin Calcium (Atorvastatin 10 Mg Tab) 10 mg PO HS [facility] Last Admin: 10/19/20 20:06 Dose: 10 mg Documented by: Calcium Carbonate/Glycine (Calcium Carbonate 500 Mg Chewable) 1,000 mg PO Q4HR PRN PRN Reason: Dyspepsia Cholecalciferol (Cholecalciferol 400 Unit Tab) 400 unit PO DAILY [facility] Last Admin: 10/20/20 08:34 Dose: 400 unit Documented by: Diazepam (Diazepam 2 Mg Tab) 1 mg PO BID [facility] Last Admin: 10/20/20 08:33 Dose: 1 mg Documented by: Enoxaparin Sodium (Enoxaparin 100 Mg/Ml Syringe) 100 mg SQ Q12HR [facility] Last Admin: 10/20/20 08:33 Dose: 100 mg Documented by: Famotidine (Famotidine 20 Mg Tab) 20 mg PO BID [facility] Last Admin: 10/20/20 08:33 Dose: 20 mg Documented by: Lactulose (Lactulose 20 Gm/30 Ml Cup) 20 gm PO DAILY PRN PRN Reason: Constipation Melatonin (Melatonin 3 Mg Tablet) 3 mg PO HS PRN PRN Reason: Insomnia Metformin HCl (Metformin 500 Mg Tab) 500 mg PO AC-BID [facility] Last Admin: 10/20/20 17:30 Dose: 500 mg Documented by: Methylprednisolone Sodium Succinate (Methylprednisolone Sod Succi 40 Mg/Ml 1 Ml Vial) 40 mg IV Q8HR [facility] Last Admin: 10/20/20 17:30 Dose: 40 mg Documented by: Metoprolol Tartrate (Metoprolol Tartrate 25 Mg Tab) 25 mg PO BID [facility] Last Admin: 10/20/20 08:33 Dose: 25 mg Documented by: Naloxone HCl (Naloxone 0.4 Mg/Ml 1 Ml Vial) 0.2 mg IV Q2M PRN PRN Reason: Opioid Reversal Apremilast [Otezla] (30 Mg Tablet) 30 mg PO BID [facility] Last Admin: 10/20/20 10:20 Dose: Not Given Documented by: Ondansetron HCl (Ondansetron 4 Mg/2 Ml Vial) 4 mg IVP Q8HR PRN PRN Reason: Nausea And Vomiting Zinc Sulfate (Zinc Sulfate 220 Mg Cap) 220 mg PO DAILY [facility] Last Admin: 10/20/20 08:34 Dose: 220 mg Documented by: Physical examination: VITAL SIGNS: 98.3, 57, 18, 115/64, 92% on 4 L GENERAL: Sitting at the edge of the bed, eating slightly short of breath. PSYCH: Alert and oriented x3; mood and affect normal. Initial exam as per nursing and pulmonary INVESTIGATIONS, reviewed in the clinical context: White count 10.5 hemoglobin 18.7 platelets 263 increased neutrophils lymphocyte 0.7 D-dimer 2.7 potassium 3.9 BUN 22 creatinine 0.63 LDH 1815, CRP 146.2 AST 202 ALT 216 EKG tracing personally reviewed by me-normal sinus rhythm Chest x-ray film personally reviewed by me-bilateral scattered infiltrates peripheral Computed tomography scan of the chest-diffuse bilateral airspace and groundglass infiltrates Assessment: -This is a patient has 2 weeks of progressive respiratory symptoms. Tested positive last for COVID 19. X-ray confirms bilateral infiltrates. bilateral COVID 19 pneumonia., POA -Acute hypoxic respiratory failure from above, POA -Diabetes mellitus type 2 on oral hypoglycemic -Hyperlipidemia -Psoriasis -Obstructive sleep apnea uses CPAP -Alcohol use disorder uses anywhere from 6-8 beers per day. -Suspect alcoholic hepatitis Plan: Continue Lovenox and IV Solu-Medrol. Zinc vitamin D and Pepcid . Being followed by pulmonary. Discussed with patient. DC Valium after tomorrow. CIWA scale to continue.
[2020-10-20] MEDS: ATORVASTATIN 10 MG TAB PO SCH (20:33)
[2020-10-21] MEDS: methylPREDNISolone SOD SUCCI 40 MG/ML 1 ML VIAL IV SCH ×2 (01:12→08:01)
[2020-10-21] MEDS: FAMOTIDINE 20 MG TAB PO SCH (08:01)
[2020-10-21] MEDS: metFORMIN 500 MG TAB PO SCH (08:01)
[2020-10-21] MEDS: diazePAM 2 MG TAB PO SCH (08:01)
[2020-10-21] MEDS: ENOXAPARIN 100 MG/ML SYRINGE SQ SCH (08:01)
[2020-10-21] MEDS: METOPROLOL TARTRATE 25 MG TAB PO SCH (08:01)
[2020-10-21] MEDS: CHOLECALCIFEROL 400 UNIT TAB PO SCH (08:01)
[2020-10-21] MEDS: Apremilast [Otezla] 30 MG Tablet PO SCH (08:01)
[2020-10-21] MEDS: ZINC SULFATE 220 MG CAP PO SCH (08:01)
[2020-10-21 09:35] VITALS: BP 126/75; PULSE 50; RESP 22; TEMP 98.5
--- NOTE | 2020-10-21 12:46 | XR ---
EXAMINATION TYPE: XR chest 1V portable DATE OF EXAM: 10/21/2020 HISTORY: Shortness of breath. COMPARISON: 10/19/2020 TECHNIQUE: Single view of the chest is submitted. FINDINGS: Demonstrated are scattered senescent parenchymal change. Patchy basilar infiltrates demonstrate interval improvement particularly at the right lung base. The heart is stable. Hilar and mediastinal structures are within normal limits. Degenerative changes are seen of the dorsal spine. IMPRESSION: 1. Patchy basilar infiltrates demonstrate interval improvement particularly at the right lung base.
--- NOTE | 2020-10-21 15:30 | P.PN ---
Subjective Progress Note Date: 10/21/20 Principal diagnosis: Acute hypoxic respiratory failure secondary to acute CoVID 19 pneumonitis This is a 70-year-old white male with history of diabetes, hypertension, dyslipidemia, ALLERGIC rhinitis, patient presented to the ER on 10/19/20, mostly with over 2 weeks history of fever, cough, congestion, and shortness of breath. Patient had his Covid testing last , this was done on outpatient basis, and the test came back positive on the day that he decided to come to the ER with worsening shortness of breath symptoms. Upon arrival the patient was noted to be hypoxic, and his chest x-ray as well as CT of the chest showed diffuse bilateral airspace and groundglass infiltrates compatible with covid 19 pneumonitis. Patient was admitted, and we were asked to see him on consultation. Patient was placed on Lovenox, Decadron, Pepcid, considering that the patient had his symptoms for over 2 weeks, no remdesivir was recommended. The patient is seen today 10/21/2020 in follow-up on the regular medical floor. He is awake and alert in no acute distress. He is still requiring 4 L/m per nasal cannula to maintain O2 saturation in the low 90s. He was outside of the window to receive Remdesivir. D-dimer 1.08. C-reactive protein 4.0. Remains on IV Solu-Medrol, Lovenox. Objective - Vital Signs Vital signs: Vital Signs Temp 98.5 F 10/21/20 09:29 Pulse 50 L 10/21/20 09:29 Resp 22 10/21/20 09:29 BP 126/75 10/21/20 09:29 Pulse Ox 91 L 10/21/20 05:13 Intake & Output 10/20/20 10/21/20 10/21/20 18:59 06:59 18:59 Intake Total 500 Balance 500 Intake: Oral 500 Other: Voiding Method Toilet Toilet # Voids 1 - Exam GENERAL: Revealed a very pleasant 70-year-old outpatient, on 4 L nasal cannula, in no distress. EYES: PERRLA, EOMI, no icterus. HEENT: Moist mucous membranes, clear throat, nasal mucosa is normal. NECK: No neck masses, no JVD, no stridor. HEART: Normal S1 and S2, no S3 gallop. LUNGS: Symmetrical chest expansion, crackles at the bases, few scattered rhonchi. ABDOMEN: Soft nontender no megaly no rebound.. PSYCH: Normal mood affect and normal mental status examination. NEUROLOGICAL: Alert and oriented 3 focal deficits. LYMPHATICS: No lymphadenopath'sy Skin: No rashes. No cyanosis. No jaundice - Labs CBC & Chem 7: 10/19/20 09:32 11 09:32 Labs: Abnormal Lab Results - Last 24 Hours (Table) 10/21/20 10/21/20 Range/Units 05:28 05:28 D-Dimer 1.08 H (<0.60) mg/L FEU C-Reactive Protein 4.0 H (0.0-0.8) mg/dL Microbiology - Last 24 Hours (Table) 10/19/20 09:32 Blood Culture - Preliminary Blood No Growth after 48 hours Assessment and Plan Assessment: 1 Acute hypoxic respiratory failure secondary to acute CoVID 19 pneumonitis 2 Type 2 diabetes. 3 History of obstructive sleep apnea, uses CPAP. 4 History of alcohol abuse. Plan: The patient was seen and evaluated by Dr. Mukherjee He is cleared for discharge from the pulmonary standpoint Evaluate for possible home oxygen Continue isolation precautions Complete 10 days of dexamethasone Follow-up with his PCP I, the cosigning physician, performed a history & physical examination of the patient. Lungs sounds basilar crackles few scattered rhonchi. Maintaining good O2 saturations in the 90s on 4 L/m per nasal cannula. I discussed the assessment and plan of care with my nurse practitioner, Peyton Valencia. I attest to the above note as dictated by her.
--- NOTE | 2020-10-21 16:23 | P.DS ---
Providers Date of admission: 10/19/20 12:29 Expected date of discharge: 10/21/20 Attending physician: James Padilla Consults: 10/19/20 17:24 Consult Physician Routine Consulting Provider: Kallie Niño Consult Reason/Comments: covid pos Do you want consulting provider notified?: Yes 10/21/20 10:54 Consult Physician Routine Consulting Provider: Jamal Walker Consult Reason/Comments: covid Do you want consulting provider notified?: Yes Primary care physician: Burton Amado [facility] Course: Final diagnosis -Bilateral Covid 19 pneumonia, present on arrival -Acute hypoxic respiratory failure from above, POA -Diabetes mellitus type 2 -Hyperlipidemia -Psoriasis -Obstructive sleep apnea uses CPAP -Alcohol use disorder -Suspect alcoholic hepatitis Discharge disposition Patient is being discharged in a stable condition with guarded prognosis to home. Patient will follow-up with Dr. Amado in the outpatient setting upon discharge. Patient will continue on steroids taper upon discharge. Total time taken is greater than 35 minutes. History of present illness This is a 70-year-old male who was recently admitted with progressive respiratory symptoms and increasing shortness of breath and cough along with fevers over the last 2 weeks that had gotten worse and was being closely monitored. Patient was tested positive for Covid 19. Patient being closely followed by pulmonary and was maintained on IV steroids along with Lovenox and breathing treatments. Patient currently remains on oxygen 3-4 L via nasal cannula as he continues to have decreased oxygenation with exertion and shortness of breath. Patient will go home with O2 due to Covid 19 pneumonia. Instructed to continue with prednisone taper and continue to quarantine for an additional 10 days and until symptom-free for at least 3 days. Patient instructed to follow-up with primary care provider upon discharge. Currently no reports of chest pain, worsening shortness of breath, or palpitations. Patient is afebrile. No reports of nausea or vomiting and patient is tolerating diet. Patient will be going home today. Guarded prognosis. On exam vital signs are stable. Temp is 98.5F, pulse is 50, respirations are 22, blood pressure is 126/75, oxygen saturation is 91-93% on 3-4 L via nasal cannula. Cardio S1, S2 are muffled. Respiratory system shows diminished breath sounds at the bases with no wheezing or rhonchi noted. Abdomen is soft and nontender. Nervous system shows no focal deficits. Please refer to medication reconciliation sheet for a list of medications. Patient Condition at Discharge: Stable Plan - Discharge Summary New Discharge Prescriptions: New Zinc Sulfate [Orazinc] 220 mg PO DAILY 30 Days #30 cap Famotidine [Pepcid] 20 mg PO BID 15 Days #30 tab predniSONE 10 mg PO DIRECTED #30 tab Acetaminophen Tab [Tylenol] 650 mg PO Q4HR PRN tab PRN Reason: Fever>101 diazePAM [Valium] 1 mg PO BID #10 tab Cholecalciferol [Vitamin D3] 400 unit PO DAILY 30 Days #30 tab Continue Milk Thistle 1,000 mg PO DAILY Cetirizine HCl [Zyrtec] 10 mg PO DAILY Rosuvastatin Calcium [Crestor] 5 mg PO HS Apremilast [Otezla] 30 mg PO BID metFORMIN HCL [Glucophage] 500 mg PO BID Ibuprofen [Motrin] 800 mg PO Q8H PRN PRN Reason: Pain Metoprolol Tartrate [Lopressor] 25 mg PO BID Discharge Medication List Apremilast [Otezla] 30 mg PO BID 09/25/19 [History] Cetirizine HCl [Zyrtec] 10 mg PO DAILY 09/25/19 [History] Milk Thistle 1,000 mg PO DAILY 09/25/19 [History] Rosuvastatin Calcium [Crestor] 5 mg PO HS 09/25/19 [History] metFORMIN HCL [Glucophage] 500 mg PO BID 09/25/19 [History] Ibuprofen [Motrin] 800 mg PO Q8H PRN 10/19/20 [History] Metoprolol Tartrate [Lopressor] 25 mg PO BID 10/19/20 [History] Acetaminophen Tab [Tylenol] 650 mg PO Q4HR PRN tab 10/21/20 [Rx] Cholecalciferol [Vitamin D3] 400 unit PO DAILY 30 Days #30 tab 10/21/20 [Rx] Famotidine [Pepcid] 20 mg PO BID 15 Days #30 tab 10/21/20 [Rx] Zinc Sulfate [Orazinc] 220 mg PO DAILY 30 Days #30 cap 10/21/20 [Rx] diazePAM [Valium] 1 mg PO BID #10 tab 10/21/20 [Rx] predniSONE 10 mg PO DIRECTED #30 tab 10/21/20 [Rx] Follow up Appointment(s)/Referral(s): Burton Amado DO [Primary Care Provider] - 1-2 days (office not answering Please call to make appointment) Patient Instructions/Handouts: Viral Pneumonia (DC) Activity/Diet/Wound Care/Special Instructions: Home oxygen - [facility] - call when you are on your way home for delivery of home oxygen equipment - [phone] Activity Limited until follow-up follow up with primary care provider upon discharge Continue with prednisone taper Continue with oxygen therapy Continue to quarantine for an additional 10 days and until symptom free 3 days Discharge Disposition: HOME SELF-CARE
== END 2020-10-21 17:42 | disposition home or self-care (01) | DRG 177 ==
LOC: EC 09:07 → 6NMEDSUR 12:29 → 4SSUR 14:15
PROVIDERS: ADMIT Hospitalist; ATTEND Hospitalist
DX: U07.1 COVID-19 (principal); J12.89 Other viral pneumonia; J96.01 Acute respiratory failure with hypoxia; G47.33 Obstructive sleep apnea (adult) (pediatric); F32.9 Major depressive disorder, single episode, unspecified; E78.5 Hyperlipidemia, unspecified; E11.9 Type 2 diabetes mellitus without complications; I10 Essential (primary) hypertension; L40.9 Psoriasis, unspecified; F10.10 Alcohol abuse, uncomplicated; K70.10 Alcoholic hepatitis without ascites; G47.30 Sleep apnea, unspecified; J30.9 Allergic rhinitis, unspecified; Z79.52 Long term (current) use of systemic steroids; Z79.84 Long term (current) use of oral hypoglycemic drugs; Z79.899 Other long term (current) drug therapy; Z87.891 Personal history of nicotine dependence; Z98.49 Cataract extraction status, unspecified eye; Z98.890 Other specified postprocedural states
CPT/HCPCS: 36415; 71045; 71275; 80053; 82728; 83605; 83615; 83735; 84145; 85025; 85379; 85610; 85730; 86140; 87040; 93005; 96365; 96366; 96375; 99285

== ENCOUNTER → 2020-11-03 | Outpatient (CLI) | payer MEDICARE, OTHER ==
--- NOTE | 2020-11-03 16:03 | XR ---
EXAMINATION TYPE: XR chest 2V DATE OF EXAM: 11/03/2020 COMPARISON: 10/21/2020 INDICATION: Pneumonia TECHNIQUE: Frontal and lateral views of the chest are obtained. FINDINGS: The heart size is normal. The pulmonary vasculature is normal. Mild bibasilar infiltrates are present. This is improved from comparison.. IMPRESSION: 1. Bibasilar infiltrates. Resolving pneumonia could be considered
== END | disposition home or self-care (01) ==
LOC: RADXRMAIN 12:22
PROVIDERS: ATTEND Family Medicine
DX: R91.8 Other nonspecific abnormal finding of lung field (principal); J18.9 Pneumonia, unspecified organism
CPT/HCPCS: 71046

== ENCOUNTER → 2022-05-10 | Outpatient (CLI) | payer MEDICARE, OTHER ==
--- NOTE | 2022-05-10 16:31 | P.PN ---
Subjective Progress Note Date: 05/10/22 71-year-old male patient coming in for a check regarding obstructive sleep apnea. I diagnosed this patient having severe FAUSTO with an AHI of 41 and he has a ResMed S9 which is set at a pressure of 11 cm of water. I can't define other the patient has not been using his CPAP machine over the past 2 years. He claims that his machine was in [place] and he had no access to his machine. The patient's symptoms of that'll worsen the patient is coming in to initiate his treatment. His machine is functional. He needs no masking. No significant weight gain. He has increased sleepiness and tiredness and fatigue during the day. He has diabetes and hyperlipidemia as comorbid conditions. No new onset comorbid conditions. His CPAP is still set at a pressure of 11 cm of water. He used to have the dreamware fullface mask and the patient is requesting and nose mask for now. Various masks were tried on this patient today in the office. No new onset medical problems and comorbidities. He has extreme daytime sleepiness. Objective - Exam BP is 186/72, pulse is 56, respirations 16, temperature 90.3 and the weight is 221. Height is 5 feet 6 inches. Oxygen saturations 92%. The patient appeared well nourished and normally developed. Vital signs as documented. Head exam is unremarkable. No scleral icterus or corneal arcus noted. Neck is without jugular venous distension, thyromegaly, or carotid bruits. Carotid upstrokes are brisk bilaterally. Lungs are clear to auscultation and percussion. Cardiac exam reveals the PMI to be normally sized and situated. Rhythm is regular. First and second heart sounds normal. No murmurs, rubs or gallops. Abdominal exam reveals normal bowel sounds, no masses, no organomegaly and no aortic enlargement. Extremities are nonedematous and both femoral and pedal pulses are normal.Examination of the skin revealed no evidence of significant rashes, suspicious appearing nevi or other concerning lesions.Neurologically, the patient is awake and alert and the patient does not have any focal neurological deficit. Cranial nerves are essentially intact. Assessment and Plan Plan: Obstructive sleep apnea, severe at baseline with an AHI of 41. The patient is supposed to be treated with a CPAP pressure of 11 cm of water. Currently off treatment. hypersomnia upper score of 7. Diabetes mellitus Hyperlipidemia Hypertension Psoriasis Plan Offered this patient a dreamware nasal pillow and under the nose masks. Both sides were offered to the patient and the patient is going to try that home and let me know to some limited would like to use in the future. He is very much interested in going back on using his CPAP. He has appropriate shielding. The machine was checked and is quite functional at this point in time. No need to repeat a study at this point and the patient is going back on his treatment and will make further adjustment in his mask interface based on his compliance and clinical response. Encourage weight loss. Comorbid conditions are stable. We'll continue to follow.
== END ==
LOC: SLEEP 15:05
PROVIDERS: ATTEND Internal Medicine Critical Care Medicine
DX: G47.33 Obstructive sleep apnea (adult) (pediatric) (principal); E11.9 Type 2 diabetes mellitus without complications; E78.5 Hyperlipidemia, unspecified; I10 Essential (primary) hypertension; L40.9 Psoriasis, unspecified; Z99.89 Dependence on other enabling machines and devices